=== PATIENT | male | born 1960 | race Hispanic/Latino ===

== ENCOUNTER → 2023-10-12 | Day surgery (SDC) | payer MEDICARE ==
[~2023-10-12] MED LIST: FENTANYL CITRATE/PF 100MCG/2 ML INJ ONE; GLYCOPYRROLATE INJ 0.2 MG/ML VIAL ONE; LACTATED RINGER'S 1,000 ML ONE; LOSARTAN POTASS25 MG PO; MIDAZOLAM HCL 2 MG/2 ML VIAL ONE; OMEPRAZOLE40 MG PO; OR PHACO EYE KIT ONE; PREOP PHACO EYE KIT ONE
[2023-10-12 12:21] VITALS: TEMP 97.2
[2023-10-12 12:35] VITALS: BP 130/89; PULSE 65; RESP 16; O2SAT 96
== END | disposition home or self-care (01) ==
LOC: OR 08:59
PROVIDERS: ATTEND Ophthalmology
DX: H25.12 Age-related nuclear cataract, left eye (principal); I10 Essential (primary) hypertension; K21.9 Gastro-esophageal reflux disease without esophagitis; Z79.899 Other long term (current) drug therapy
CPT/HCPCS: 66984; J2250; J3010; J7121; V2632

== ENCOUNTER 2025-01-19 16:23 | Emergency (ER) | payer MEDICARE ==
[~2025-01-19] VITALS: Ht 188 cm; Wt 122.5 kg
[~2025-01-19 16:23] MED LIST changes: -FENTANYL CITRATE/PF 100MCG/2 ML INJ ONE; -GLYCOPYRROLATE INJ 0.2 MG/ML VIAL ONE; -LACTATED RINGER'S 1,000 ML ONE; -MIDAZOLAM HCL 2 MG/2 ML VIAL ONE; -OR PHACO EYE KIT ONE; -PREOP PHACO EYE KIT ONE
[2025-01-19 16:50] VITALS: TEMP 98.3
[2025-01-19 21:00] VITALS: PULSE 62; RESP 17
[2025-01-19] MEDS ORDERED: ANUSOL-HC25 MG RC (21:39)
[2025-01-19 21:47] VITALS: BP 145/86; O2SAT 100
== END 2025-01-19 21:44 | disposition home or self-care (01) ==
LOC: ER 21:36
DX: K62.89 Other specified diseases of anus and rectum (principal); K64.4 Residual hemorrhoidal skin tags; I10 Essential (primary) hypertension; K21.9 Gastro-esophageal reflux disease without esophagitis
CPT/HCPCS: 99283